=== PATIENT | male | born 1975 | race Caucasian/White ===

== ENCOUNTER 2018-02-18 00:03 | Observation (INO) ==
[2018-02-18] MEDS ORDERED: Nitroglycerin 0.4 MG TAB.SUBL SL ONE (00:10)
[2018-02-18] MEDS ORDERED: 0.9 % Sodium Chloride 500 ML ONE (00:41)
[2018-02-18 00:57] LABS: Basophils # 0.1 K/mcL (0.0-0.2); Basophils % 0.9 %; Eosinophils # 0.2 K/mcL (0.0-0.6); Eosinophils % 1.4 %; Hematocrit 42.7 % (37.5-50.1); Immature Granulocytes % 0.3 % (0-4); Lymphocytes # 2.9 K/mcL (0.6-4.6); Lymphocytes % 22.7 %; Mean Corpuscular HGB Conc 32.8 g/dL (31.6-35.5); Mean Corpuscular Hemoglobin 28.6 pg (28.0-33.3); Mean Corpuscular Volume 87.1 fL (83.0-100.0); Mean Platelet Volume 10.3 fL (9.4-12.4); Monocytes # 0.8 K/mcL (0.0-1.3); Monocytes % 6.3 %; Neutrophils # 8.8 K/mcL (1.6-8.9); Platelet Count 303 K/mcL (140-400); Red Cell Distribution Width 12.8 % (11.5-14.5); Segmented Neutrophils % 68.4 %
[2018-02-18 01:11] LABS: INR 0.9; Prothrombin Time 10.5 Seconds (9.4-12.1)
[2018-02-18 01:14] LABS: Activated Partial Thrombo Time 33.1 Seconds (26.0-36.0)
[2018-02-18 01:15] LABS: BUN/Creatinine Ratio 12 (6-26); Blood Urea Nitrogen 11 mg/dL (6-20); Carbon Dioxide 23 mEq/L (23-29); Chloride 112 mEq/L (98-107); Glucose 116 mg/dL (70-105); Osmolality,Calculated 292 (280-300); Potassium 3.7 mEq/L (3.5-5.1); Sodium 141 mEq/L (136-145); eGFR For Non-African Americans > 60 (> 60)
[2018-02-18 01:16] LABS: Troponin I < 0.03 ng/mL (< 0.04)
[2018-02-18 02:11] LABS: Alanine Aminotransferase 45 Units/L (7-52); Albumin 3.7 g/dL (3.5-5.7); Albumin/Globulin Ratio 1.5 (1.1-2.2); Alkaline Phosphatase 78 Units/L (34-104); Aspartate Amino Transferase 28 Units/L (13-39); Bilirubin,Indirect 0.3 mg/dL (0.0-1.2); Bilirubin,Total 0.3 mg/dL (0.3-1.0); Globulin 2.5 g/dL (2.4-3.5); Lipase 59 Units/L (11-82); Total Protein 6.2 g/dL (6.4-8.9)
[2018-02-18] MEDS: Isovue-370 500 ML INFUS..BTL IV ONE (02:17)
--- NOTE | 2018-02-18 02:30 | Emergency Department Note ---
Disposition Clinical Impression: Diverticulitis Chest pain Qualifiers: Chest pain type: unspecified Qualified Code(s): R07.9 - Chest pain, unspecified Disposition: Admitted As Inpatient Condition: Good Time of Disposition: 02:47 Chest Pain HPI - General Chief Complaint: ED Chest Pain Stated Complaint: chest pain Time Seen by Provider: 02/18/18 00:09 Source: patient, EMS Mode of arrival: EMS Limitations: no limitations Vital Signs Reviewed: Yes Nursing Notes Reviewed: Yes - History of Present Illness HPI Narrative: Patient presents to the ED with the chief complaint of chest pain. Patient states that he does have a history of chest pain and has had several stress tests. States he has had nitroglycerin years ago. 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 However, earlier today he had fairly abrupt onset at rest of a very sharp stabbing left-sided chest pain that radiated into his left jaw, back, shoulder and down his left arm. Denies any fever or chills. No cough. Did have shortness of breath and diaphoresis. Did state he had some abdominal discomfort. No vomiting or diarrhea. Does smoke, has a history of hypertension, hyperlipidemia and family history of heart disease Severity scale (1-10): 0 - Related Data Home Medications Medication Instructions Recorded Confirmed Dextroamphetamine/Amphetamine 20 mg PO 02/18/18 [Adderall 20 mg Tablet] Escitalopram [Lexapro] 20 mg PO 02/18/18 Fenofibrate 160 mg PO 02/18/18 Lisinopril [Zestril] 20 mg PO 02/18/18 Omeprazole [PriLOSEC] 40 mg PO DAILY 02/18/18 02/18/18 amLODIPine [Norvasc] 5 mg PO 02/18/18 diazePAM [Valium] 10 mg PO ONCE 02/18/18 02/18/18 Allergies Allergy/AdvReac Type Severity Reaction Status Date / Time Penicillins Allergy Unknown unknown Verified 02/18/18 03:07 childhood reaction Review of Systems: As reviewed in the HPI. All other systems reviewed are negative or normal. Chest Pain PMH - Past Medical History Medical history: Reports: hyperlipidemia, hypertension, kidney stones Surgical history: Reports: orthopedic, other, ureteral stent Psychiatric history: Reports: ADHD - Social History Smoking Status: Current every day smoker Alcohol use: Reports: occasionally Drug use: Reports: none Physical Exam CONSTITUTIONAL: [well appearing, alert and in no acute distress] EYES: [EOMI, clear conjunctiva, PERRLA] HENT: [Normocephalic, atraumatic, moist mucus membranes, normal oropharynx] NECK: [normal inspection, full ROM, trachea midline, no obvious swelling] PULMONARY: [normal lung sounds bilaterally, normal chest rise and fall, no respiratory distress or stridor, no wheezes, no rales, no rhonchi CARDIOVASCULAR: [regular rate, regular rhythm, normal heart sounds, no murmurs, distal extremities are warm and well perfused] GASTROINSTESTINAL: [soft, non-tender, non-rigid, non-distended, no guarding, no rebound, normal bowel sounds] GENITOURINARY/RECTAL: [deferred] NEUROLOGIC: [Alert, oriented x3, normal speech, moves all extremities] EXTREMITIES: [Normal inspection, full ROM, no tenderness, no pedal edema, normal capillary refill] MUSCULOSKELETAL: [no gross deformities, atraumatic] SKIN: [No cyanosis, no diaphoresis, normal color, warm, no rash] PSYCHIATRIC: [normal mood and affect] - General Limitations: no limitations General appearance: alert, in no apparent distress Course - Reevaluation(s) Reevaluation #1: CT shows transverse diverticulitis which is odd considering his symptoms. Unclear if that could be contributing to his symptoms but regardless will admit for CP r/o and IV ABX. Vital Signs Temperature 97.9 F 02/18/18 00:20 Pulse Rate 84 02/18/18 00:20 Respiratory Rate 18 02/18/18 00:20 Blood Pressure 144/88 02/18/18 00:20 O2 Sat by Pulse Oximetry 96 02/18/18 00:20 Temperature 97.9 F 02/18/18 00:20 Pulse Rate 84 02/18/18 01:14 Respiratory Rate 14 02/18/18 01:14 Blood Pressure 125/82 02/18/18 01:14 O2 Sat by Pulse Oximetry 98 02/18/18 01:14 Oxygen Delivery Oxygen Delivery Room Air Chest Pain - Medical Records Medical records reviewed: Yes I reviewed the patient's medical records. - Lab Data Lab results reviewed: Yes I reviewed the patient's lab results. Result diagrams: 02/18/18 00:46 02/18/18 00:46 Lab Results 02/18/18 02/18/18 02/18/18 Range/Units 00:46 00:46 00:46 WBC 12.9 H (4.3-11.1) K/mcL RBC 4.90 (4.19-5.50) M/mcL Hgb 14.0 (12.9-16.9) g/dL Hct 42.7 (37.5-50.1) % MCV 87.1 (83.0-100.0) fL MCH 28.6 (28.0-33.3) pg MCHC 32.8 (31.6-35.5) g/dL RDW 12.8 (11.5-14.5) % Plt Count 303 (140-400) K/mcL MPV 10.3 (9.4-12.4) fL Immature Gran % 0.3 (0-4) % Seg Neutrophils % 68.4 % Lymphocytes % 22.7 % Monocytes % 6.3 % Eosinophils % 1.4 % Basophils % 0.9 % Neutrophils # 8.8 (1.6-8.9) K/mcL Lymphocytes # 2.9 (0.6-4.6) K/mcL Monocytes # 0.8 (0.0-1.3) K/mcL Eosinophils # 0.2 (0.0-0.6) K/mcL Basophils # 0.1 (0.0-0.2) K/mcL PT 10.5 (9.4-12.1) Seconds INR 0.9 APTT 33.1 (26.0-36.0) Seconds Sodium (136-145) mEq/L Potassium (3.5-5.1) mEq/L Chloride (98-107) mEq/L Carbon Dioxide (23-29) mEq/L BUN (6-20) mg/dL Creatinine (0.70-1.30) mg/dL Est GFR ( Amer) (> 60) Est GFR (Non-Af Amer) (> 60) BUN/Creatinine Ratio (6-26) Glucose (70-105) mg/dL Calculated Osmolality (280-300) Calcium (8.6-10.3) mg/dL Total Bilirubin (0.3-1.0) mg/dL Direct Bilirubin (0.0-0.2) mg/dL Indirect Bilirubin (0.0-1.2) mg/dL AST (13-39) Units/L ALT (7-52) Units/L Alkaline Phosphatase (34-104) Units/L Troponin I (< 0.04) ng/mL B-Natriuretic Peptide 36 (Less than 100) pg/mL Serum Total Protein (6.4-8.9) g/dL Albumin (3.5-5.7) g/dL Globulin (2.4-3.5) g/dL Albumin/Globulin Ratio (1.1-2.2) Lipase (11-82) Units/L 02/18/18 Range/Units 00:46 WBC (4.3-11.1) K/mcL RBC (4.19-5.50) M/mcL Hgb (12.9-16.9) g/dL Hct (37.5-50.1) % MCV (83.0-100.0) fL MCH (28.0-33.3) pg MCHC (31.6-35.5) g/dL RDW (11.5-14.5) % Plt Count (140-400) K/mcL MPV (9.4-12.4) fL Immature Gran % (0-4) % Seg Neutrophils % % Lymphocytes % % Monocytes % % Eosinophils % % Basophils % % Neutrophils # (1.6-8.9) K/mcL Lymphocytes # (0.6-4.6) K/mcL Monocytes # (0.0-1.3) K/mcL Eosinophils # (0.0-0.6) K/mcL Basophils # (0.0-0.2) K/mcL PT (9.4-12.1) Seconds INR APTT (26.0-36.0) Seconds Sodium 141 (136-145) mEq/L Potassium 3.7 (3.5-5.1) mEq/L Chloride 112 H (98-107) mEq/L Carbon Dioxide 23 (23-29) mEq/L BUN 11 (6-20) mg/dL Creatinine 0.89 (0.70-1.30) mg/dL Est GFR ( Amer) > 60 (> 60) Est GFR (Non-Af Amer) > 60 (> 60) BUN/Creatinine Ratio 12 (6-26) Glucose 116 H (70-105) mg/dL Calculated Osmolality 292 (280-300) Calcium 9.0 (8.6-10.3) mg/dL Total Bilirubin 0.3 (0.3-1.0) mg/dL Direct Bilirubin 0.0 (0.0-0.2) mg/dL Indirect Bilirubin 0.3 (0.0-1.2) mg/dL AST 28 (13-39) Units/L ALT 45 (7-52) Units/L Alkaline Phosphatase 78 (34-104) Units/L Troponin I < 0.03 (< 0.04) ng/mL B-Natriuretic Peptide (Less than 100) pg/mL Serum Total Protein 6.2 L (6.4-8.9) g/dL Albumin 3.7 (3.5-5.7) g/dL Globulin 2.5 (2.4-3.5) g/dL Albumin/Globulin Ratio 1.5 (1.1-2.2) Lipase 59 (11-82) Units/L - Radiology Data Radiology results reviewed: Yes I reviewed the patient's radiology results. - EKG Data EKG attestation: Yes I reviewed and interpreted this EKG. EKG results narrative: Sinus rhythm, rate 85, normal intervals, normal axis, no ischemic change Heart Score - Score History: Highly Suspicious EKG: Normal Age: Less than 45 Risk Factors: Equal/Greater than 3 risk factor or history of atherosclerotic disease Troponin: Less than normal limit HEART Score Total: 4 Attestation Statement - Attestation Attestation: I examined this patient and my medical decision-making was reviewed with the Resident Physician. I agree with the documented findings, disposition and treatment plan as described except to the extent set forth below. Chest pain which is actually related to possible diverticulitis of the transverse colon and causing referred pain in the chest. I would still proceed with ACS rule out and start antibiotics. Admit for further management workup.
[2018-02-18] MEDS ORDERED: MetroNIDAZOLE 500 MG/100 ML 500 MG/100 ML BAG IVPB ONE (02:39)
[2018-02-18] MEDS ORDERED: Aspirin 81 MG TAB.CHEW PO ONE (02:46)
[2018-02-18] MEDS ORDERED: Naloxone 0.4 MG/ML INJ IVP PRN (07:37)
[2018-02-18] MEDS ORDERED: Ringers Solution, Lactated 1,000 ML IVC SCH ×2 (07:45→15:19)
[2018-02-18] MEDS: Dextroamphetamine/Amphetamine [Adderall 20 Mg Tablet PO SCH ×2 (08:27→19:36)
--- NOTE | 2018-02-18 10:18 | Internal Med History&Physical ---
Date of Encounter: 02/18/18 Time of Encounter: 08:20 Internal Medicine - H&P: HPI Chief complaint: Chest pain Admitted From: Emergency Dept Plans for Post Hospital Care: Home History of present illness: Mr. Gray is a 42 year old male patient with a history of hypertension who presented to the ER with complaints of pain in his chest radiating to his left arm and back. He began to have the pain yesterday that began to get worse and was associated with some shortness of breath and sweating. He did not really have any significant abdominal pain but did have some abdominal discomfort. No nausea or vomiting. No blood in his stools. No hematuria. No palpitations. Patient has had multiple stress tests in the past but nothing recent. He received nitroglycerin in the ER along with aspirin and his pain has now resolved. No fevers or chills reported. Past Med Surg Social Fam HX - Past Medical History Attestation: Yes The following information was validated with the patient. Source: patient Medical history: hyperlipidemia, hypertension, kidney stones Psychiatric history: ADHD - Past Surgical History Surgical History: orthopedic, other, ureteral stent Additional surgical history: C7 reconstruction with cadaver bone - Social History Smoking Status: Current every day smoker Packs per day: 2 Smokeless Tobacco Status: No Alcohol use: occasionally Drug use: none - Family History Mother Age: 67 Living Status: Still Living Hx Family Cardiac Disorders: Yes (heart disease, HTN) Hx Family Cancer: Yes (melanoma, breast cancer, colon) Hx Family Neurologic Disorders: Yes (TIA) Father Age: 72 Living Status: Still Living Hx Family Cardiac Disorders: Yes (heart disease, HTN) Hx Family Medical Disorders: (HLD) Internal Medicine - H&P: Meds Dextroamphetamine/Amphetamine [Adderall 20 mg Tablet] 20 mg PO QAM 02/18/18 [History] Escitalopram [Lexapro] 20 mg PO DAILY 02/18/18 [History] Fenofibrate 160 mg PO DAILY 02/18/18 [History] Lisinopril [Zestril] 20 mg PO DAILY 02/18/18 [History] Nicotine Patch [Nicoderm] 21 mg TD DAILY 02/18/18 [History] Omeprazole [PriLOSEC] 40 mg PO DAILY 02/18/18 [History] amLODIPine [Norvasc] 5 mg PO DAILY 02/18/18 [History] diazePAM [Valium] 10 mg PO QAM 02/18/18 [History] Allergy/AdvReac Type Severity Reaction Status Date / Time Penicillins Allergy Unknown unknown Verified 02/18/18 03:07 childhood reaction All Systems PM: A 10-system review of systems was performed and is negative for pertinent findings except as documented above in the HPI. - Constitutional Constitutional: no chills, no fever(s), no night sweats - EENT Eyes: no change in vision, no discharge, no pain, no photophobia Ears: no ear discharge, no ear pain, no tinnitus Nose, mouth and throat: no dysphagia, no nasal discharge, no neck pain, no sore throat - Cardiovascular Cardiovascular ROS IM: chest pain, no diaphoresis, no dyspnea, no lightheadedness, no palpitations, no syncope - Respiratory Respiratory: dyspnea, no cough, no wheezing, no excessive phlegm production - Gastrointestinal Gastrointestinal: no abdominal pain, no diarrhea, no hematemesis, no hematochezia, no melena, no nausea, no vomiting - Musculoskeletal Musculoskeletal ROS IM: no numbness, no tingling - Integumentary Integumentary IM: no rash, no unusual bruising - Neurological Neurological ROS: no confusion, no convulsions, no focal weakness, no numbness, no tingling, no tremor(s) - Hematologic/Lymphatic Hematologic/Lymphatic: no easy bruising - Constitutional Vitals: Temp Pulse Resp BP Pulse Ox 97.5 F L 72 18 121/73 95 02/18/18 06:44 02/18/18 06:44 02/18/18 06:44 02/18/18 06:44 02/18/18 06:44 General appearance: Present: cooperative, mild distress, A&O X 3, pleasant, answers questions appropriately Exam: . - ENT ENT exam: Present: mucous membranes moist - Neck Neck exam general surgery: Present: supple, trachea midline. Absent: lymphadenopathy - Respiratory Respiratory exam: Present: CTAB. Absent: accessory muscle use, rales, rhonchi, wheezes - Cardiovascular Cardiovascular exam: Present: RRR, +S1, +S2. Absent: diastolic murmur, gallop, rubs, systolic murmur - GI/Abdominal GI/Abdominal exam: Present: normal bowel sounds, soft, tenderness (Epigastric and left upper quadrant), no peritoneal signs. Absent: distended - Extremities Exam Extremities exam: Present: warm, radial pulses palpable and symmetrical. Absent: calf tenderness, cyanotic, pedal edema - Neurological Exam Neurological exam: Present: alert, oriented X3, no focal deficits. Absent: facial droop, speech deficit - Skin Skin exam: Present: dry, intact Internal Med - H&P Results - Labs CBC & Chem 7: 02/18/18 00:46 02/18/18 00:46 Labs: Short CBC 02/18/18 Range/Units 00:46 WBC 12.9 H (4.3-11.1) K/mcL Hgb 14.0 (12.9-16.9) g/dL Hct 42.7 (37.5-50.1) % Plt Count 303 (140-400) K/mcL Neutrophils # 8.8 (1.6-8.9) K/mcL BMP 02/18/18 00:46 Sodium 141 Potassium 3.7 Chloride 112 H Carbon Dioxide 23 BUN 11 Creatinine 0.89 Glucose 116 H Calcium 9.0 Cardiac Enzymes 02/18/18 Range/Units 00:46 Troponin I < 0.03 (< 0.04) ng/mL Liver Function 02/18/18 Range/Units 00:46 Total Bilirubin 0.3 (0.3-1.0) mg/dL Direct Bilirubin 0.0 (0.0-0.2) mg/dL AST 28 (13-39) Units/L ALT 45 (7-52) Units/L Alkaline Phosphatase 78 (34-104) Units/L Albumin 3.7 (3.5-5.7) g/dL - Impressions ITS Impressions Chest X-Ray 02/18/18 00:10 IMPRESSION: No acute process. D/ / Zachary Lindquist MD / Zachary Lindquist MD Interpreting Provider: Zachary Lindquist MD Abdomen/Pelvis CTA 02/18/18 00:40 IMPRESSION: No evidence of aortic dissection or aneurysm. No significant atherosclerotic disease. No central pulmonary embolism. No acute process in the chest. Focal short segment inflammatory process involving the transverse colon with scattered colonic diverticula suggesting acute diverticulitis of the transverse colon. No evidence of abscess or free air. Recommend follow-up after resolution of acute symptoms. D/ / 02/18/2018 07:53:45 Zachary Lindquist MD / Micki De Los Santos Interpreting Provider: Zachary Lindquist MD Chest CTA 02/18/18 00:40 IMPRESSION: No evidence of aortic dissection or aneurysm. No significant atherosclerotic disease. No central pulmonary embolism. No acute process in the chest. Focal short segment inflammatory process involving the transverse colon with scattered colonic diverticula suggesting acute diverticulitis of the transverse colon. No evidence of abscess or free air. Recommend follow-up after resolution of acute symptoms. D/ / 02/18/2018 07:53:45 Zachary Lindquist MD / Princess De Los Santos Interpreting Provider: Zachary Lindquist MD - Assessment and plan (1) Diverticulitis Current Visit: Yes Status: Acute Assessment and plan: Patient with acute diverticulitis involving the transverse colon. Does have tenderness in this region. Continue IV antibiotics. Keep nothing by mouth. IV fluids. He will eventually need colonoscopy as outpatient in 4-6 weeks. High risk for complications. (2) Chest pain Current Visit: Yes Status: Acute Assessment and plan: Chest pain radiating to the left arm and to the back. Concerning for ACS/angina. Trend troponins. If troponins are negative, consider cardiac stress test prior to discharge. Check lipid profile. Qualifiers: Chest pain type: precordial pain Qualified Code(s): R07.2 - Precordial pain (3) Essential hypertension Current Visit: Yes Status: Chronic Assessment and plan: Blood pressure is currently well controlled. Continue home medications. - Time Spent With Patient Total time spent is greater than 50% in coordination of care (as documented) at patient's floor/unit and/or counseling patient:
[2018-02-18] MEDS: MetroNIDAZOLE 500 MG/100 ML 500 MG/100 ML BAG IVPB SCH ×2 (11:06→18:47)
[2018-02-18] MEDS: Lisinopril 20 MG TABLET PO SCH (13:12)
[2018-02-19] MEDS: MetroNIDAZOLE 500 MG/100 ML 500 MG/100 ML BAG IVPB SCH ×2 (02:50→10:12)
[2018-02-19 05:16] LABS: Basophils # 0.1 K/mcL (0.0-0.2); Basophils % 1.1 %; Eosinophils # 0.1 K/mcL (0.0-0.6); Eosinophils % 1.6 %; Hematocrit 39.8 % (37.5-50.1); Hemoglobin 12.8 g/dL (12.9-16.9); Immature Granulocytes % 0.2 % (0-4); Lymphocytes # 3.4 K/mcL (0.6-4.6); Lymphocytes % 40.8 %; Mean Corpuscular HGB Conc 32.2 g/dL (31.6-35.5); Mean Corpuscular Hemoglobin 28.4 pg (28.0-33.3); Mean Corpuscular Volume 88.2 fL (83.0-100.0); Mean Platelet Volume 10.6 fL (9.4-12.4); Monocytes # 0.6 K/mcL (0.0-1.3); Monocytes % 7.7 %; Platelet Count 271 K/mcL (140-400); Red Blood Count 4.51 M/mcL (4.19-5.50); Red Cell Distribution Width 12.9 % (11.5-14.5); Segmented Neutrophils % 48.6 %
[2018-02-19 05:35] LABS: BUN/Creatinine Ratio 8 (6-26); Blood Urea Nitrogen 7 mg/dL (6-20); Calcium 8.7 mg/dL (8.6-10.3); Carbon Dioxide 25 mEq/L (23-29); Chloride 113 mEq/L (98-107); Chol/HDL Ratio 5.6 (0-4.9); Cholesterol 129 mg/dL (< 200); Glucose 109 mg/dL (70-105); HDL Cholesterol 23 mg/dL (40-59); LDL Cholesterol,Calculated 85 mg/dL (0-99); Osmolality,Calculated 293 (280-300); Sodium 142 mEq/L (136-145); Triglycerides 106 mg/dL (< 150); eGFR For Non-African Americans > 60 (> 60)
[2018-02-19] MEDS ORDERED: Regadenoson 0.4 MG/5 ML SYRINGE IVP ONE (05:39)
[2018-02-19] MEDS: Lisinopril 20 MG TABLET PO SCH (07:56)
[2018-02-19] MEDS ORDERED: amLODIPine 5 MG TABLET PO SCH (09:00)
[2018-02-19] MEDS ORDERED: Nicotine 21 MG PATCH.TD24 TD SCH (09:00)
[2018-02-19] MEDS ORDERED: diazePAM 10 MG TABLET PO SCH (09:00)
[2018-02-19] MEDS ORDERED: Lisinopril 20 MG TABLET PO SCH (09:00)
[2018-02-19] MEDS: Dextroamphetamine/Amphetamine [Adderall 20 Mg Tablet PO SCH (10:18)
[2018-02-19 10:34] VITALS: BP 110/71
--- NOTE | 2018-02-19 15:28 | Discharge Summary ---
- NOTES TO OUTPATIENT PROVIDER Notes to Outpatient Provider: Present with chest pain radiating to his left artery and back-underwent cardiac stress test which was negative for any ischemia or infarct. Incidental finding of diverticulitis-no evidence of abscess or free air tolerating oral intake-will complete a 10 day course of Cipro and Flagyl follow-up as outpatient Orders not resulted at time of discharge: Pending orders 02/19/18 07:00 NM keenan perf SPECT multi [NM] Routine Date of Encounter: 02/19/18 Time of Encounter: 15:18 - Discharge Diagnosis (1) Diverticulitis Priority: Secondary Status: Acute (2) Chest pain Priority: Primary Status: Acute Qualifiers: Chest pain type: precordial pain Qualified Code(s): R07.2 - Precordial pain (3) Essential hypertension Priority: Secondary Status: Chronic Hospital course: Mr. Gray is a 42 year old male past medical history of hypertension, current smoker presented to the emergency department with complaints of chest pain radiating to his left arm and back with associated symptoms of shortness of breath and diaphoresis. He did not have any significant abdominal pain but did have some abdominal discomfort. He also had a slightly elevated white count he denied any bloody stools hematuria nausea or vomiting. He has had stress test in the past but nothing recent. CT of chest was negative for any PE CT of abdomen did show acute diverticulitis of the transverse colon and no evidence of abscess or free air. Patient was initiated on Cipro and Flagyl given bowel rest overnight. Troponins have been negative [address]-T wave abnormalities. He did undergo stress test which was negative for any ischemia or infarct. Patient has been tolerating oral intake advanced to bland diet which he has been tolerating. No pain or discomfort voiced no diarrhea no abdominal tenderness. He is able tolerate his medications and food. Patient is requesting to be discharged advised patient to follow with primary care provider, for reevaluation. also advised patient not to drink any alcohol and encouraged to stop smoking. Patient was given education per nursing staff concerning diverticular diet. Will be discharged with 10 day course of Cipro and Flagyl Patient verbalized understanding he is hemodynamically stable this time he is ready for discharge. Discharge discussed with: patient - Time Spent with Patient Total time spent providing and/or coordinating discharge services: - Discharge Medications Prescriptions: Ciprofloxacin [Cipro] 500 mg PO BID #20 tablet metroNIDAZOLE [Flagyl] 500 mg PO TID #30 tablet Home Medications: Dextroamphetamine/Amphetamine [Adderall 20 mg Tablet] 20 mg PO QAM 02/18/18 [History] Escitalopram [Lexapro] 20 mg PO DAILY 02/18/18 [History] Fenofibrate 160 mg PO DAILY 02/18/18 [History] Lisinopril [Zestril] 20 mg PO DAILY 02/18/18 [History] Nicotine Patch [Nicoderm] 21 mg TD DAILY 02/18/18 [History] Omeprazole [PriLOSEC] 40 mg PO DAILY 02/18/18 [History] amLODIPine [Norvasc] 5 mg PO DAILY 02/18/18 [History] diazePAM [Valium] 10 mg PO QAM 02/18/18 [History] Ciprofloxacin [Cipro] 500 mg PO BID #20 tablet 02/19/18 [Rx] metroNIDAZOLE [Flagyl] 500 mg PO TID #30 tablet 02/19/18 [Rx] Allergies/Adverse Reactions: Allergy/AdvReac Type Severity Reaction Status Date / Time Penicillins Allergy Unknown unknown Verified 02/18/18 03:07 childhood reaction Date of admission: 02/18/18 03:07 Primary care physician: Sarmad Elizalde DO Discharging clinician: Yesenia Alvarenga Anticipated date of discharge: 02/19/18 - Constitutional Vitals: Temp Pulse Resp BP Pulse Ox 98.6 F 88 16 110/71 96 02/19/18 10:33 02/19/18 10:33 02/19/18 10:33 02/19/18 10:33 02/19/18 10:33 General appearance: Present: cooperative, mild distress, A&O X 3, pleasant, answers questions appropriately Exam: . - Head Head exam: Present: atraumatic, normocephalic - Eye Eye exam: Present: PERRL, conjuntiva pink, sclera anicteric Pupils: Present: PERRL - Neck Neck exam general surgery: Present: supple, trachea midline. Absent: lymphadenopathy - Respiratory Respiratory exam: Present: CTAB. Absent: accessory muscle use, rales, rhonchi, wheezes - Cardiovascular Cardiovascular exam: Present: RRR, +S1, +S2. Absent: diastolic murmur, gallop, rubs, systolic murmur - GI/Abdominal GI/Abdominal exam: Present: normal bowel sounds, soft, no peritoneal signs. Absent: distended, tenderness - Extremities Exam Extremities exam: Present: warm, radial pulses palpable and symmetrical. Absent: calf tenderness, cyanotic, pedal edema - Neurological Exam Neurological exam: Present: CN II-XII intact, oriented X3, no focal deficits. Absent: pronater drift, facial droop, speech deficit - Skin Skin exam: Present: dry, intact - Patient Status Disposition: Home, Self-Care Condition: Good Functional capacity at discharge: independent ambulation Overall status at discharge: patient is back to baseline - Discharge Instructions Follow Up With: Sarmad Elizalde DO [Primary Care Provider] - 02/26/18 8:30 am - Diet and Activity Activity: increase activity as tolerated Diet: other
--- NOTE | 2018-02-22 15:47 | Electrocardiograph Report ---
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
== END 2018-02-19 17:33 | disposition home or self-care (01) ==
LOC: EMEROOARM 00:03 → 3BNU 00:03
PROVIDERS: ADMIT Family Medicine; ATTEND Family Medicine